=== PATIENT | female | born 1955 | race Caucasian/White ===

== ENCOUNTER 2024-02-26 08:00 | Outpatient (CLI) | payer MEDICARE ==
--- NOTE | 2024-02-26 20:45 | XRAY Report ---
PROCEDURE: Chest 2V INDICATIONS: DYSPNEA TECHNIQUE: 2 views of the chest were acquired. COMPARISON: Chest radiographs 08/12/2013. FINDINGS: Surgical changes and devices: Cervical spinal fusion hardware is present. Lungs and pleura: No pleural effusions or pneumothorax. Lungs are clear. Mediastinum: Mediastinal contours appear normal. Heart size is normal. Bones and chest wall: No suspicious bony lesions. Overlying soft tissues appear unremarkable. IMPRESSION: No acute cardiopulmonary process. Reviewed by: Isac Whalen MD on 02/26/2024 8:44 PM PDT Approved by: Isac Whalen MD on 02/26/2024 8:44 PM PDT Station ID: [id number]
== END 2024-02-26 23:59 | disposition home or self-care (01) ==
LOC: DI.S 08:00
PROVIDERS: ATTEND Registered Nurse
DX: R06.00 Dyspnea, unspecified (principal)

== ENCOUNTER 2024-03-25 08:00 | Outpatient (CLI) | payer MEDICARE | END 2024-03-25 23:59 | disposition home or self-care (01) | LOC: LAB.S 08:00 | PROVIDERS: ATTEND Emergency Medicine | DX: L02.511 Cutaneous abscess of right hand (principal) | CPT/HCPCS: 87070; 87181; 87205 ==